=== PATIENT | male | born 1965 | race Caucasian/White ===

== ENCOUNTER → 2020-07-07 | Outpatient (CLI) | payer BC ==
[~2020-07-07] MED LIST: CARVEDILOL12.5 MG PO; CATAPRES0.1 MG; DILTIAZEM HCL90 MG; FOLIC ACID; NIFEDIPINE10 MG PO; SOMA350 MG PO; TOPROL XL50 MG
--- NOTE | 2020-07-07 11:43 | Diagnostic Imaging Report ---
EXAM: US ABDOMEN COMPLETE DATE: 07/07/2020 10:56 AM INDICATION: Upper abdominal pain COMPARISON: None TECHNIQUE: Transverse and longitudinal coleman scale and color doppler sonographic images of the upper abdomen were obtained. FINDINGS: LIVER 15.3 cm in the right midclavicular line. Increased echogenicity of the liver with normal contour, no masses. SPLEEN 9.1 cm in maximum diameter. Normal echogenicity, no masses. GALLBLADDER No gallbladder wall thickening, distension, stone, or pericholecystic fluid. Negative reported sonographic Washburn's sign. The gallbladder wall measures 2mm BILE DUCTS No intra nor extra-hepatic biliary dilation. Common bile duct measures 4mm PANCREAS: Visualized portions are normal. RIGHT KIDNEY: 10.6 cm Echogenicity: Normal Collecting System: No hydronephrosis Stones: None Cyst/Mass: None LEFT KIDNEY: 11.3 cm Echogenicity: Normal Collecting System: No hydronephrosis Stones: None Cyst/Mass: None VESSELS: Aorta: Visualized portions are within normal size limits Inferior Vena Cava: Visualized portions are normal Main Portal Vein: 1.1 cm, normal size with hepatopetal flow. FREE FLUID: None IMPRESSION: Diffuse hepatic steatosis. Signed by: Christopher Daley MD on 07/07/2020 11:39 AM
== END ==
LOC: US 10:29
PROVIDERS: ATTEND Internal Medicine Gastroenterology
DX: R10.10 Upper abdominal pain, unspecified (principal)
CPT/HCPCS: 76700

== ENCOUNTER → 2020-07-13 | Day surgery (SDC) | payer BC, OTHER ==
[~2020-07-13] MED LIST changes: +FENTANYL CITRATE/PF 100MCG/2 ML INJ ONE; +HYOSCYAMINE 0.125 MG TAB ONE; +LIDOCAINE HCL 2% LOCAL INJ 5 ML SDV VIAL INJ ONE; +MIDAZOLAM HCL 2 MG/2 ML VIAL ONE; +PROPOFOL IV EMULSION 10 MG/ML 20 ML VIAL ONE
[2020-07-13 11:55] VITALS: BP 121/80
--- NOTE | 2020-07-13 12:40 | Operative Report ---
DATE OF PROCEDURE: 07/13/2020 SURGEON: Juan Pelaez MD PROCEDURES: EGD with biopsies and colonoscopy with polypectomy and biopsies. INDICATIONS FOR EGD: Upper abdominal pain, bloating. INDICATIONS FOR COLONOSCOPY: Colorectal cancer screening, chronic diarrhea. MEDICATIONS: The patient was done under MAC, please see anesthesiologist's note. PROCEDURE IN DETAIL: With the patient in the left lateral decubitus position, the flexible fiberoptic Olympus gastroscope was introduced into the esophagus under direct visualization without any difficulty. There was some patchy erythema noted in distal esophagus. A minute tongue of velvety red mucosa was noted to extend proximally from the GE junction, biopsies were obtained to rule out Rios. The scope was then advanced with ease into the stomach. Mucosa overlying the antrum and the body revealed some patchy erythema and [id number] edema, and biopsies were obtained and sent to stain for H. pylori. Pylorus was of normal contour and shape, was intubated with ease and the scope was advanced all the way to the second portion of the duodenum. Biopsies were obtained from the proximal second portion and duodenal bulb to rule out sprue. The scope was then withdrawn back into the stomach and retroflexed, and mucosa overlying the fundus and the cardia appeared to be within normal limits. The scope was then straightened out, it was subsequently withdrawn, and the patient tolerated the procedure well. IMPRESSION: 1. Mild distal esophagitis. 2. Rule out Rios esophagus. 3. Gastritis, biopsied, biopsies sent to stain for Helicobacter pylori. 4. Rule out sprue. PLAN: Follow up histology. Initiate Protonix 40 mg one p.o. q.a.m. before meals. The patient was then turned around and after adequate lubrication of the anal canal, a flexible fiberoptic Olympus colonoscope was inserted into the rectum with ease and advanced all the way to the cecum. Mucosa overlying the cecum appeared to be within normal limits. The ileocecal valve was intubated and the scope was advanced into the terminal ileum. Biopsies were obtained from the terminal ileum. The scope was then withdrawn back into the colon. It was then withdrawn slowly. Mucosa overlying the ascending and the transverse appeared to be within normal limits. There were mild patchy inflammatory changes noted in the left colon and random biopsies were obtained. Two polyps were hot snared from the descending colon and there was some diverticulosis noted in the sigmoid colon. One polyp was hot snared from the rectum. The scope was then retroflexed into the distal rectum and small internal hemorrhoids were noted, none of which was actively bleeding. The scope was then straightened out, it was subsequently withdrawn, and the patient tolerated the procedure well. IMPRESSION: 1. Colon polyps x2, descending colon, hot snared. 2. Mild patchy inflammatory changes, left colon. 3. Diverticulosis. 4. Rectal polyp, hot snared. 5. Proctitis, mild. 6. Internal hemorrhoids, none actively bleeding. PLAN: Follow up histology. Follow up stool studies. Initiate Bentyl 10 mg one p.o. t.i.d. If stool studies and biopsies were nonrevealing, then we will proceed with a trial of Xifaxan. Juan Pelaez MD [facility] [place] /[id number] cc: Mu Baron MD
[2020-07-13 15:44] LABS: C DIFFICILE TOXIN A&B AMP PROB **POSITIVE** (NEGATIVE); WBC,FECAL (FECAL LACTOFERRIN) NEGATIVE (NEGATIVE)
== END | disposition home or self-care (01) ==
LOC: OR 07:16
PROVIDERS: ATTEND Internal Medicine Gastroenterology
DX: K29.50 Unspecified chronic gastritis without bleeding (principal); D12.4 Benign neoplasm of descending colon; K62.1 Rectal polyp; K20.9 Esophagitis, unspecified; K22.8 Other specified diseases of esophagus; K52.9 Noninfective gastroenteritis and colitis, unspecified; B96.81 Helicobacter pylori [H. pylori] as the cause of diseases classified elsewhere; K57.30 Diverticulosis of large intestine without perforation or abscess without bleeding; K62.89 Other specified diseases of anus and rectum; K64.8 Other hemorrhoids; I10 Essential (primary) hypertension; F17.210 Nicotine dependence, cigarettes, uncomplicated; Z88.6 Allergy status to analgesic agent; Z01.810 Encounter for preprocedural cardiovascular examination; Z01.812 Encounter for preprocedural laboratory examination; Z11.59 Encounter for screening for other viral diseases; Z83.79 Family history of other diseases of the digestive system
CPT/HCPCS: 43239; 45380; 45385; 83630; 83993; 87045; 87177; 87328; 87493; 93005; J2001; J2704; U0002; 45378; 45384

== ENCOUNTER → 2020-11-10 | Outpatient (CLI) | payer BC ==
[~2020-11-10] MED LIST changes: -FENTANYL CITRATE/PF 100MCG/2 ML INJ ONE; -HYOSCYAMINE 0.125 MG TAB ONE; -LIDOCAINE HCL 2% LOCAL INJ 5 ML SDV VIAL INJ ONE; -MIDAZOLAM HCL 2 MG/2 ML VIAL ONE; -PROPOFOL IV EMULSION 10 MG/ML 20 ML VIAL ONE
== END ==
LOC: NM 14:02
PROVIDERS: ATTEND Internal Medicine Gastroenterology
DX: A04.72 Enterocolitis due to Clostridium difficile, not specified as recurrent (principal)
CPT/HCPCS: 78227; A9537

== ENCOUNTER → 2021-07-03 | Outpatient (CLI) | payer BC | LOC: RAD 14:23 | PROVIDERS: ATTEND Internal Medicine Cardiovascular Disease | DX: R06.02 Shortness of breath (principal) | CPT/HCPCS: 71046 ==

== ENCOUNTER → 2021-07-19 | Day surgery (SDC) | payer BC ==
[~2021-07-19] MED LIST changes: +DICYCLOMINE HCL20 MG PO; +LOSARTAN POTAS100 MG PO
[2021-07-19 14:45] VITALS: BP 97/75
[2021-07-19 14:57] LABS: WBC,FECAL (FECAL LACTOFERRIN) NEGATIVE (NEGATIVE)
[2021-07-20 15:10] LABS: C DIFFICILE TOXIN A&B AMP PROB **POSITIVE** (NEGATIVE)
== END | disposition home or self-care (01) ==
LOC: OR 12:12
PROVIDERS: ATTEND Internal Medicine Gastroenterology
DX: K51.50 Left sided colitis without complications (principal); D12.0 Benign neoplasm of cecum; D12.2 Benign neoplasm of ascending colon; D12.3 Benign neoplasm of transverse colon; K57.30 Diverticulosis of large intestine without perforation or abscess without bleeding; K62.89 Other specified diseases of anus and rectum; K64.8 Other hemorrhoids; I10 Essential (primary) hypertension; J44.9 Chronic obstructive pulmonary disease, unspecified; Z88.6 Allergy status to analgesic agent; Z01.810 Encounter for preprocedural cardiovascular examination; Z01.812 Encounter for preprocedural laboratory examination; Z01.818 Encounter for other preprocedural examination; Z20.822 Contact with and (suspected) exposure to COVID-19
CPT/HCPCS: 45380; 45385; 71046; 83630; 83993; 87045; 87177; 87328; 87493; 93005; U0002; 45378; 45384